=== PATIENT | female | born 1945 | race Hispanic/Latino ===

== ENCOUNTER 2020-12-15 08:28 | Emergency (ER) | payer MEDICARE ==
--- NOTE | 2020-12-15 09:48 | Emergency Department Report ---
HPI - General Chief Complaint: Fall Time Seen by Provider: 12/15/20 08:38 - HPI HPI: This is a 75-year-old female presents to the emergency department via EMS from her [facility] with the complaint of a fall, questionably down some stairs. The patient has a history of COPD, hypertension, diabetes, vertigo, and the patient also says that she has a history of myasthenia gravis. Apparently the patient usually requires assistance for ADLs. The report from EMS was that the patient fell in her room. The patient says that she fell down 12 stairs. She has a complaint of some mild headache and right shoulder pain. The facility also says that the patient has been dealing with a productive cough over the past few weeks. ED Past Medical Hx - Past Medical History Hx Hypertension: Yes Hx Diabetes: Yes Hx COPD: Yes Additional medical history: Insomnia. Epidemic vertigo - Social History Smoking Status: Never Smoker Substance Use Type: None - Medications Home Medications: Home Medications Medication Instructions Recorded Confirmed Last Taken Type Insulin NPH Human Isophane 10 unit SQ BID 12/15/20 12/15/20 Unknown History [HumuLIN N] LORazepam [Lorazepam] 1 mg PO QDAY 12/15/20 12/15/20 Unknown History Lactobacillus Combination No.8 1 each PO DAILY 12/15/20 12/15/20 Unknown History [Adult Probiotic] Loratadine [Allergy] 10 mg PO QDAY 12/15/20 12/15/20 Unknown History Losartan [Cozaar] 100 mg PO QDAY 12/15/20 12/15/20 Unknown History Nystatin Oint [Mycostatin Oint] 1 applicatio TP TID 12/15/20 12/15/20 Unknown History [place]-3 Fatty Acids/Fish Oil [Fish 1 each PO QDAY 12/15/20 12/15/20 Unknown History Oil 1,000 mg Capsule] Ondansetron [Zofran Odt] 4 mg PO Q8HR 12/15/20 12/15/20 Unknown History Sildenafil [Revatio] 20 mg PO TID 12/15/20 12/15/20 Unknown History diazePAM [Diazepam] 10 mg PO DAILY 12/15/20 12/15/20 Unknown History ED Review of Systems ROS: Stated complaint: FALL Other details as noted in HPI Comment: All other systems reviewed and negative Constitutional: denies: chills, fever Eyes: denies: eye pain, vision change ENT: denies: ear pain, throat pain Respiratory: cough. denies: shortness of breath Cardiovascular: denies: chest pain, palpitations Gastrointestinal: denies: abdominal pain, vomiting Genitourinary: denies: dysuria, discharge Musculoskeletal: arthralgia, myalgia. denies: joint swelling Skin: denies: rash, lesions Neurological: headache. denies: numbness Physical Exam - Physical Exam Vital Signs: Vital Signs 12/15/20 08:41 Temperature 98.2 F Pulse Rate 86 Respiratory 16 Rate Blood Pressure 126/82 O2 Sat by Pulse 95 Oximetry Physical Exam: GENERAL: The patient is well-developed well-nourished. HENT: Normocephalic. Atraumatic. Patient has moist mucous membranes. EYES: Extraocular motions are intact. NECK: Supple. Trachea is midline. CHEST/LUNGS: Clear to auscultation. There is no respiratory distress noted. HEART/CARDIOVASCULAR: Regular. There is no tachycardia. There is no murmur. ABDOMEN: Abdomen is soft, nontender. Patient has normal bowel sounds. There is no abdominal distention. SKIN: Skin is warm and dry. NEURO: The patient is awake, alert, and cooperative. Patient is confused AAO x2, to person place but not time. The patient has no focal neurologic deficits. Normal speech. Cranial nerves II through XII grossly intact. MUSCULOSKELETAL: There is some tenderness to palpation to the right shoulder but no obvious deformity. There is no limitation range of motion. BACK: There is both midline and bilateral paraspinal thoracic and lumbar tenderness to palpation. ED Course Vital Signs 12/15/20 08:41 Temperature 98.2 F Pulse Rate 86 Respiratory 16 Rate Blood Pressure 126/82 O2 Sat by Pulse 95 Oximetry - Reevaluation(s) Reevaluation #1: 12/15/20 10:43 I spoke to the patient's daughter for some collateral information. She says that the patient has a history of a CVA from a few months ago and has some history of dementia. The daughter says that the patient says many abnormal and/or inappropriate things. The patient does have a history of hypertension, diabetes, and history of some recent renal insufficiency. She confirms that the patient fell in her room and that there are no stairs at this facility. ED Medical Decision Making - Lab Data Result diagrams: 12/15/20 09:08 12/15/20 09:08 Lab Results 12/15/20 12/15/20 Range/Units 09:08 09:08 WBC 11.5 H (4.5-11.0) K/mm3 RBC 5.09 H (3.65-5.03) M/mm3 Hgb 15.6 H (10.1-14.3) gm/dl Hct 44.7 H (30.3-42.9) % MCV 88 (79-97) fl MCH 31 (28-32) pg MCHC 35 H (30-34) % RDW 14.3 (13.2-15.2) % Plt Count 176 (140-440) K/mm3 Lymph % (Auto) 11.3 L (13.4-35.0) % [place] % (Auto) 7.3 (0.0-7.3) % Eos % (Auto) 1.8 (0.0-4.3) % Baso % (Auto) 0.5 (0.0-1.8) % Lymph # (Auto) 1.3 (1.2-5.4) K/mm3 [place] # (Auto) 0.8 (0.0-0.8) K/mm3 Eos # (Auto) 0.2 (0.0-0.4) K/mm3 Baso # (Auto) 0.1 (0.0-0.1) K/mm3 Seg Neutrophils % 79.1 H (40.0-70.0) % Seg Neutrophils # 9.1 H (1.8-7.7) K/mm3 Sodium 134 L (137-145) mmol/L Potassium 4.8 (3.6-5.0) mmol/L Chloride 95.7 L (98-107) mmol/L Carbon Dioxide 25 (22-30) mmol/L Anion Gap 18 mmol/L BUN 27 H (7-17) mg/dL Creatinine 1.8 H (0.6-1.2) mg/dL Estimated GFR 27 ml/min BUN/Creatinine Ratio 15 % Glucose 126 H (65-100) mg/dL Calcium 12.7 H* (8.4-10.2) mg/dL Total Bilirubin 0.80 (0.1-1.2) mg/dL AST 22 (5-40) units/L ALT 20 (7-56) units/L Alkaline Phosphatase 92 (35-129) units/L Total Protein 7.7 (6.3-8.2) g/dL Albumin 3.5 L (3.9-5) g/dL Albumin/Globulin Ratio 0.8 % - Radiology Data Radiology results: report reviewed, image reviewed interpreted by me: Chest x-ray does not show any acute process. There are no pleural effusions, obvious pneumonia and there is no pneumothorax. No widened mediastinum. X-ray of the right shoulder does not show any fracture, dislocation, or any acute process. X-ray of the pelvis does not show any fracture, dislocation, or any acute process. X-ray of the thoracic and lumbar spine show degenerative changes, but otherwise no fractures, subluxation, or any acute process. CT head/brain wo con INDICATION / CLINICAL INFORMATION: 75 years Female; Trauma, fall last night no LOC. TECHNIQUE: Routine CT head without contrast. All CT scans at this location are performed using CT dose reduction for ALARA by means of automated exposure control. COMPARISON: The study is compared to previous CT of 11/23/2020. FINDINGS: BRAIN / INTRACRANIAL CONTENTS: The motion degrades the image quality. However, there is persistent old infarct involving left basal ganglia with encephalomalacia. There is advanced cerebral atrophy with associated prominence of the ventricular system. The findings correlate with previous CTA. There is no gross evidence of acute intracranial hemorrhage or significant mass effect. ORBITS: No significant abnormality of visualized orbits. SINUSES / MASTOIDS: There is mild mucosal thickening within the ethmoid, sphenoid and visualized right maxillary sinuses. CRANIOCERVICAL JUNCTION: No significant abnormality. ADDITIONAL FINDINGS: None. IMPRESSION: 1. The study is limited by motion. However, there is continued advanced cerebral atrophy and old infarct involving left basal ganglia as described. There is no clear CT evidence of acute intracranial hemorrhage. CT cervical spine wo con INDICATION / CLINICAL INFORMATION: 75 years Female; Trauma fall light night no LOC pain RT side. TECHNIQUE: Axial CT images of the cervical spine were obtained. Sagittal and coronal reformatted images were produced. All CT scans at this location are performed using CT dose reduction for ALARA by means of automated exposure control. COMPARISON: None available. FINDINGS: POST-SURGICAL CHANGES: None. ALIGNMENT: There is no significant spondylolisthesis or scoliosis of the cervical spine. VERTEBRAE: There are multilevel degenerative the disc and endplate changes involving the cervical spine. However, there is no clear CT evidence of acute fracture of the cervical spine. INTRAVERTEBRAL DISCS: The left facet joint hypertrophy at C3-4 results in moderate to marked left neural foraminal narrowing at. The spondylosis at C4-5 effaces the ventral subarachnoid space. There is moderate to marked foraminal narrowing, greater on the right. The spondylosis at C5-6 also effaces the ventral subarachnoid space. There is moderate to marked left and moderate right foraminal narrowing. There is similar spondylosis at C6-7 with marked foraminal narrowing, greater on the right. PARASPINAL SOFT TISSUES: No prevertebral soft tissue fluid collections are identified. ADDITIONAL FINDINGS: None. IMPRESSION: 1. There is no CT evidence of acute fracture involving the cervical spine. 2. There are multilevel degenerative changes as detailed above. - Medical Decision Making This patient presents from her [facility] after an unwitnessed fall in her room. The patient displays some confusion, but after speaking to the patient's daughter this appears to be her baseline mental status with a history of dementia and a relatively recent stroke. The facility complained that the patient has had a cough for the past 3 weeks and that she was previously complaining of right shoulder pain. On examination she complains of a headache, mild neck pain, and has some reproducible tenderness to palpation along her back. CT scan of the head did not show any skull fracture, hemorrhage, or any other acute process. CT of the cervical spine did not show any fracture, subluxation, or any acute process. X-rays were done of the right shoulder, chest, pelvis, thoracic and lumbar spine, and none of these imaging studies showed any fractures, subluxations, pneumothorax, or any other acute processes. The patient's labs shows renal insufficiency with a GFR of about 30. Once again the patient's daughter says that she has been dealing with some level of chronic kidney disease. Patient also has some hypercalcemia with a level of 12.7. Some of this may be secondary to dehydration, but the patient is also on HCTZ. I do not feel that the patient requires admission for the hypercalcemia. She has been given about 750 cc of IV fluid to help with some dehydration and dilution of the hypercalcemia. Her discharge instructions will include to discontinue the HCTZ. I spoke to the patient's daughter towards the end of the patient's ED course to let her know of these lab abnormalities, and the imaging results, and my plan for discharge back home. I explained that I plan to discontinue the HCTZ and that the patient will need close outpatient follow-up with her PCP to have the calcium level rechecked and see if she needs to start a different antihypertensive medication. The daughter understands and is in agreement with the plan. Critical Care Time: No Critical care attestation.: If time is entered above; I have spent that time in minutes in the direct care of this critically ill patient, excluding procedure time. ED Disposition Clinical Impression: Hypercalcemia, Renal insufficiency Hypertension Qualifiers: Hypertension type: primary hypertension Qualified Code(s): I10 - Essential (primary) hypertension Fall Qualifiers: Encounter type: initial encounter Qualified Code(s): W19.XXXA - Unspecified fall, initial encounter Disposition: TO HOME OR SELFCARE Is pt being admited?: No Condition: Stable Instructions: Hypercalcemia, Fall Prevention in the Home, Adult, Hypertension, Adult, Hypertension (ED) Additional Instructions: Please follow-up with the primary care physician as soon as you are able to do so. Due to the elevated calcium level, please discontinue the hydrochlorothiazide (HCTZ). Please discuss whether or not you need another blood pressure medication to take its place. You were found to have some decreased kidney function. After speaking with your daughter, it appears that you have some history of at least recent decreased kidney function. Please avoid any NSAIDs, such as Aleve, ibuprofen, naproxen, Naprosyn, Advil, as these can further worsen your kidney function. Make sure to stay hydrated. Drink plenty of water. Return to the emergency department with any worsening of your symptoms, new or concerning symptoms not addressed during this current emergency department visit, or with any acute distress. Referrals: SOLANGE ORO MD [Primary Care Provider] - 2-3 Days Time of Disposition: 13:28
[2020-12-15 09:51] LABS: Basophils # (Auto) 0.1 K/mm3 (0.0-0.1); Basophils % (Auto) 0.5 % (0.0-1.8); Eosinophils # (Auto) 0.2 K/mm3 (0.0-0.4); Eosinophils % (Auto) 1.8 % (0.0-4.3); Hematocrit 44.7 % (30.3-42.9); Hemoglobin 15.6 gm/dl (10.1-14.3); Lymphocytes # (Auto) 1.3 K/mm3 (1.2-5.4); Lymphocytes % (Auto) 11.3 % (13.4-35.0); Mean Corpuscular HGB Conc 35 % (30-34); Mean Corpuscular Volume 88 fl (79-97); Monocytes # (Auto) 0.8 K/mm3 (0.0-0.8); Monocytes % (Auto) 7.3 % (0.0-7.3); Platelet Count 176 K/mm3 (140-440); Red Blood Count 5.09 M/mm3 (3.65-5.03); Red Cell Distribution Width 14.3 % (13.2-15.2)
[2020-12-15 10:10] LABS: Albumin 3.5 g/dL (3.9-5)
[2020-12-15 10:17] LABS: Calcium 12.7 mg/dL (8.4-10.2)
[2020-12-15] MEDS ORDERED: SODIUM CHLORIDE 0.9% 1000 ML 1,000 ML IV ONE (10:19)
[2020-12-15 14:02] VITALS: BP 128/62
== END 2020-12-15 17:47 | disposition home or self-care (01) ==
LOC: ED 08:28
DX: E83.52 Hypercalcemia (principal); N28.9 Disorder of kidney and ureter, unspecified; I10 Essential (primary) hypertension; E11.9 Type 2 diabetes mellitus without complications; J44.9 Chronic obstructive pulmonary disease, unspecified; Z79.899 Other long term (current) drug therapy; Z88.8 Allergy status to other drugs, medicaments and biological substances; W18.30XA Fall on same level, unspecified, initial encounter; Y93.89 Activity, other specified; Y92.89 Other specified places as the place of occurrence of the external cause; Y99.8 Other external cause status
CPT/HCPCS: 36415; 70450; 71046; 72070; 72100; 72125; 72170; 73030; 80053; 85025; 96360; 96361; 99285; J7030